=== PATIENT | female | born 1995 | race Caucasian/White ===

== ENCOUNTER → 2018-11-20 13:52 | Observation (INO) ==
--- NOTE | 2018-11-20 08:33 | OB/GYN History & Physical ---
Date of Encounter: 11/20/18 Time of Encounter: 08:31 Assessment and Plan (1) 33 weeks gestation of Current visit: Yes Status: Acute t at 33w 4d gestation set by 28 week u/s. RNST today. (2) Diffuse abdominal pain Current visit: Yes Status: Acute Pt presents with acute onset abdominal pain at 5 am. I'm uncertain as etiology of pain but she is quite uncomfortable. Will definitely need observation. She is having some uc's so will give one dose of Brethine while assessing reason for pain. She has no evidence of ROM, will check CBC. Will check fibrinogen and u/s to r/o abruption. Will, consider steroids pending results of CBC. History of Present Illness HPI: Ms. Martinez is a 23 year old female female with EDC 01/04/19 set by 29w5d u/s presents at 33w4d with c/o sudden onset of excruciating diffuse abdominal pain and mid back pain starting a 5 am this morning when she was going to bed. She denies true uc's, vb or any lof. She has had no similar c/o during this . No recent abdominal trauma or SI. She denies drug use. Aside from late and limited PNC she has had no other complications. She had normal 3 hr GTT. Past Med Surg Social Fam HX - Past Medical History Source: patient, old records reviewed Medical history: asthma Obstetrical History - Pregnancies : 1 Exam - Constitutional Constitutional: obese - HEENT HEENT: EOMI, PERRL - Neck Neck exam: full ROM - Lungs Respiratory exam: CTAB - Cardiovascular Cardiovascular exam: RRR - Abdomen Abdomen: Present: gravid, diffuse tenderness - Cervix Dilation: 1 Effacement: 60 Station: -3 - Comments Comments: SSE is neg for pool or nitrazine. Results All other labs normal. - VTE Reasons for not Prescribing Prophylaxis: Treatment not Indicated - Low risk for VTE
[2018-11-20 08:41] LABS: Basophils % 0.3 %; Eosinophils # 0.1 K/mcL (0.0-0.6); Eosinophils % 0.6 %; Hemoglobin 13.7 g/dL (11.5-15.4); Immature Granulocytes % 0.4 % (0-4); Lymphocytes # 1.7 K/mcL (0.6-4.6); Lymphocytes % 12.9 %; Mean Corpuscular HGB Conc 34.3 g/dL (31.6-35.5); Mean Corpuscular Hemoglobin 29.3 pg (28.0-33.3); Mean Corpuscular Volume 85.7 fL (83.0-100.0); Mean Platelet Volume 11.6 fL (9.4-12.4); Monocytes # 0.7 K/mcL (0.0-1.3); Monocytes % 4.9 %; Neutrophils # 10.9 K/mcL (1.6-8.9); Platelet Count 229 K/mcL (140-400); Red Blood Count 4.67 M/mcL (3.82-4.97); Red Cell Distribution Width 13.1 % (11.5-14.5); Segmented Neutrophils % 80.9 %
[2018-11-20 09:02] LABS: Alanine Aminotransferase 11 Units/L (7-52); Aspartate Amino Transferase 11 Units/L (13-39); BUN/Creatinine Ratio 11 (6-26); Blood Urea Nitrogen 5 mg/dL (6-20); Lactate Dehydrogenase 137 Units/L (140-271); Uric Acid 3.4 mg/dL (2.3-7.6); eGFR For Non-African Americans > 60 (> 60)
[2018-11-20 09:46] LABS: Bilirubin,Urine Negative (Negative); Blood,Urine Negative (Negative); Clarity,Urine Clear (Clear); Color,Urine Yellow (Yellow); Glucose,Urine (UA) Normal (Normal); Ketones,Urine Negative (Negative); Leukocyte Esterase,Urine Negative (Negative); Nitrite,Urine Negative (Negative); Protein,Urine Negative (Neg-Trace); Specific Gravity,Urine 1.022 (1.010-1.025); Urobilinogen,Urine Normal (Normal)
[2018-11-20 09:53] LABS: Amphetamine Screen,Urine Negative ng/mL (Cutoff=1000); Barbiturate Screen,Urine Negative ng/mL (Cutoff=200); Benzodiazepines Screen,Urine Negative ng/mL (Cutoff=200); Cannabinoid Screen,Urine Negative ng/mL (Cutoff = 50); Cocaine Screen,Urine Negative ng/mL (Cutoff= 300); Opiate Screen,Urine Negative ng/mL (Cutoff=300); Phencyclidine Screen,Urine Negative ng/mL (Cutoff=25)
[2018-11-20 09:57] LABS: Protein/Creatinine Ratio,Urine 0.11 mg/mg (0.00-0.20)
--- NOTE | 2018-11-20 13:26 | OB Labor Progress Note ---
Date of Encounter: 11/20/18 Time of Encounter: 13:24 Labor Progress Note - Subjective Subjective: Pt doing well, no longer with any pain, vb or lof. - Heart Tones Heart Tones: RNST - Nageezi Nageezi: No UC's - Interventions Interventions: Will d/c home. - Plan Plan: D/c home.
[~2018-11-20 13:52] MED LIST: Ringers Solution, Lactated 1,000 ML ONE; Ringers Solution, Lactated 500 ML IVC ONE; Terbutaline 1 MG/ML VIAL SQ ONE
== END | disposition home or self-care (01) ==
LOC: 1NENULAB
PROVIDERS: ADMIT Student in an Organized Health Care Education/Training Program; ATTEND Student in an Organized Health Care Education/Training Program

== ENCOUNTER → 2018-12-10 23:00 | Observation (INO) ==
[2018-12-10 21:47] LABS: Bilirubin,Urine Negative (Negative); Blood,Urine Negative (Negative); Clarity,Urine Clear (Clear); Color,Urine Yellow (Yellow); Glucose,Urine (UA) Normal (Normal); Ketones,Urine Negative (Negative); Leukocyte Esterase,Urine Small (Negative); Nitrite,Urine Negative (Negative); Protein,Urine Trace mg/dL (Neg-Trace); Specific Gravity,Urine 1.019 (1.010-1.025); Urobilinogen,Urine Normal (Normal)
[2018-12-10 21:50] LABS: Bacteria,Urine Moderate per hpf (None-Few); Hyaline Casts,Urine None Seen per lpf (None-Few); Squamous Epithelial Cell,Urine Many per lpf (None-Few)
[2018-12-10 22:06] LABS: Amphetamine Screen,Urine Negative ng/mL (Cutoff=1000); Barbiturate Screen,Urine Negative ng/mL (Cutoff=200); Benzodiazepines Screen,Urine Negative ng/mL (Cutoff=200); Cannabinoid Screen,Urine Negative ng/mL (Cutoff = 50); Cocaine Screen,Urine Negative ng/mL (Cutoff= 300); Opiate Screen,Urine Negative ng/mL (Cutoff=300); Phencyclidine Screen,Urine Negative ng/mL (Cutoff=25)
[2018-12-10 22:20] LABS: Basophils % 0.2 %; Eosinophils % 0.4 %; Hematocrit 36.5 % (35.3-44.9); Hemoglobin 12.2 g/dL (11.5-15.4); Immature Granulocytes % 0.4 % (0-4); Lymphocytes # 1.3 K/mcL (0.6-4.6); Lymphocytes % 12.1 %; Mean Corpuscular HGB Conc 33.4 g/dL (31.6-35.5); Mean Corpuscular Hemoglobin 28.8 pg (28.0-33.3); Mean Corpuscular Volume 86.3 fL (83.0-100.0); Monocytes # 0.5 K/mcL (0.0-1.3); Monocytes % 5.1 %; Neutrophils # 8.7 K/mcL (1.6-8.9); Platelet Count 216 K/mcL (140-400); Red Blood Count 4.23 M/mcL (3.82-4.97); Red Cell Distribution Width 13.4 % (11.5-14.5); Segmented Neutrophils % 81.8 %
--- NOTE | 2018-12-10 22:52 | Discharge Summary ---
Date of Encounter: 12/10/18 Time of Encounter: 23:02 - Discharge Diagnosis (1) 36 weeks gestation of Priority: Primary Status: Acute Comments: Admitted to observation for labor evaluation (2) NST (non-stress test) reactive Priority: Secondary Status: Acute Comments: FHR 135 bpm, moderate variability, +15x15 accels, no decels. (3) False labor before 37 completed weeks of gestation Priority: Secondary Status: Acute Comments: SVE 1/thick/high without change in >1 hr Qualifiers: Trimester: third trimester Qualified Code(s): O47.03 - False labor before 37 completed weeks of gestation, third trimester - Discharge Medications Home Medications: Prenata Chewable Tablet 1 tab PO BID 11/20/18 [History] Allergies/Adverse Reactions: Allergy/AdvReac Type Severity Reaction Status Date / Time No Known Allergies Allergy Verified 12/10/18 20:20 Data Procedures and tests throughout hospitalization: Laboratory Tests 12/10/18 12/10/18 12/10/18 21:34 21:34 22:05 WBC 10.6 RBC 4.23 Hgb 12.2 Hct 36.5 MCV 86.3 MCH 28.8 MCHC 33.4 RDW 13.4 Plt Count 216 MPV 12.0 Immature Gran % 0.4 Seg Neutrophils % 81.8 Lymphocytes % 12.1 Monocytes % 5.1 Eosinophils % 0.4 Basophils % 0.2 Neutrophils # 8.7 Lymphocytes # 1.3 Monocytes # 0.5 Eosinophils # 0.0 Basophils # 0.0 Urine Color Yellow Urine Clarity Clear Urine pH 7.0 Ur Specific [place] 1.019 Urine Protein Trace Urine Glucose (UA) Normal Urine Ketones Negative Urine Blood Negative Urine Nitrite Negative Urine Bilirubin Negative Urine Urobilinogen Normal Ur Leukocyte Esterase Small H Urine Microscopic RBC 5-15 H Urine Microscopic WBC 5-15 H Ur Squamous Epith Cells Many H Urine Bacteria Moderate H Hyaline Casts None Seen Ur Culture Indicated? NO. A Urine Opiates Screen Negative Ur Barbiturates Screen Negative Ur Phencyclidine Scrn Negative Ur Amphetamines Screen Negative U Benzodiazepines Scrn Negative Urine Cocaine Screen Negative U Marijuana (THC) Screen Negative Ur Drug Screen Interp See Below Labs on day of discharge: Labs from last 24 hours 12/10/18 12/10/18 12/10/18 22:05 21:34 21:34 WBC 10.6 RBC 4.23 Hgb 12.2 Hct 36.5 MCV 86.3 MCH 28.8 MCHC 33.4 RDW 13.4 Plt Count 216 MPV 12.0 Immature Gran % 0.4 Seg Neutrophils % 81.8 Lymphocytes % 12.1 Monocytes % 5.1 Eosinophils % 0.4 Basophils % 0.2 Neutrophils # 8.7 Lymphocytes # 1.3 Monocytes # 0.5 Eosinophils # 0.0 Basophils # 0.0 Urine Color Yellow Urine Clarity Clear Urine pH 7.0 Ur Specific [place] 1.019 Urine Protein Trace Urine Glucose (UA) Normal Urine Ketones Negative Urine Blood Negative Urine Nitrite Negative Urine Bilirubin Negative Urine Urobilinogen Normal Ur Leukocyte Esterase Small H Urine Microscopic RBC 5-15 H Urine Microscopic WBC 5-15 H Ur Squamous Epith Cells Many H Urine Bacteria Moderate H Hyaline Casts None Seen Ur Culture Indicated? NO. A Urine Opiates Screen Negative Ur Barbiturates Screen Negative Ur Phencyclidine Scrn Negative Ur Amphetamines Screen Negative U Benzodiazepines Scrn Negative Urine Cocaine Screen Negative U Marijuana (THC) Screen Negative Ur Drug Screen Interp See Below Date of admission: 12/10/18 20:15 Discharging clinician: Comfort Gordon Anticipated date of discharge: 12/10/18 - Patient Status Disposition: Home, Self-Care Condition: Good Functional capacity at discharge: independent ambulation Overall status at discharge: patient is progressing back to baseline - Discharge Instructions Additional Instructions: LABOR AND DELIVERY DISCHARGE INSTRUCTIONS Signs and Symptoms to be Reported to your Doctor Immediately: * Sudden gush, continuous or intermittent lead of fluid from vagina (note the time of gush and color of fluid) * Onset of bright red vaginal bleeding with or without pain (if you had a vaginal exam during this visit you may notice some dark red spotting. This is normal.) * Contractions that are 5 minutes apart (from the beginning of one contraction to the beginning of the next) and last 45-60 seonds; contractions that you can no longer walk, talk or laugh through. * A change in the baby's activity. This could be an increase or decrease in activity. * Severe headache which does not go away with tylenol. * Sudden swelling in the face, hands, arms and/or legs. * Upper abdominal pain - sometimes associated with heartburn or nausea and is not relieved by Maalox, Mylanta or Tums. * Kick Counts __ One hour after a meal, lay down on one side in a quiet place. Count the number of time the baby moves during an hour. If less than 6 movements, notify your physician Diet: *Force fluids, 8 to 10 tall glasses of fluid per day - may include popsicles and jello *Limit caffeine - this includes chocolate, coffee, tea, any soft drink containing such as all jl, Fabricio Yellow and Mountain Dew - Diet and Activity Activity: resume usual activities as tolerated Diet: regular diet Hospital Course P[employer]AW[employer]IVER Hospital course: Patient came to L&D with complaint of contraction pain since 1800 this evening that have become more painful. She reports positive movement, denies leakage and vaginal bleeding. While she was being monitored she stated the contractions have subsided and she is feeling better. Cervix is without change and she is scheduled for her routine visit in 2 days. Time Attestation: Total time spent providing and/or coordinating discharge services: Time Spent: Less than 30 minutes Exam - Constitutional General appearance IM: A&O X 3, no acute distress, answers questions appropriately - Respiratory Respiratory exam: Present: CTAB - Cardiovascular Cardiovascular exam IM: Present: RRR, +S1, +S2 - GI/Abdominal GI/Abdominal exam IM: normal bowel sounds, soft - Extremities Exam Extremities exam IM: Present: full ROM, normal capillary refill, normal inspection, pedal edema - Neurological Exam Neurological exam: alert, normal gait, oriented X3 - VTE Reasons for not Prescribing Prophylaxis: Treatment not Indicated - Low risk for VTE
== END | disposition home or self-care (01) ==
LOC: 1NENULAB
PROVIDERS: ADMIT Registered Nurse; ATTEND Registered Nurse

== ENCOUNTER 2018-12-20 07:51 | Inpatient (IN) ==
[2018-12-20] MEDS ORDERED: Naloxone 0.4 MG/ML INJ IVP PRN ×2 (09:51→10:22)
[2018-12-20] MEDS ORDERED: Penicillin G Potassium 5,000,000 UNIT in 0.9 % Sodium Chloride Mini Bag 100 ML IVPB ONE (09:51)
[2018-12-20] MEDS ORDERED: Famotidine 20 MG/2 ML VIAL IVP PRN (09:51)
[2018-12-20] MEDS ORDERED: Metoclopramide 10 MG/2 ML VIAL IVP PRN ×2 (09:51→17:39)
[2018-12-20] MEDS ORDERED: Ondansetron 4 MG/2 ML VIAL IVP PRN ×3 (09:51→17:39)
[2018-12-20] MEDS ORDERED: *HR* Nalbuphine 10 MG/ML AMPUL IVP PRN (09:51)
[2018-12-20] MEDS ORDERED: Ringers Solution, Lactated 1,000 ML ONE (09:56)
[2018-12-20] MEDS ORDERED: Oxytocin 20 units/ LR 1000 mL 20 UNIT/1,000 ML BAG IVC SCH ×2 (10:00→17:39)
[2018-12-20] MEDS ORDERED: Ringers Solution, Lactated 1,000 ML IVC SCH ×2 (10:00→17:39)
[2018-12-20] MEDS ORDERED: Ringers Solution, Lactated 2,000 ML ONE (10:15)
[2018-12-20 10:21] LABS: Amphetamine Screen,Urine Negative ng/mL (Cutoff=1000); Barbiturate Screen,Urine Negative ng/mL (Cutoff=200); Benzodiazepines Screen,Urine Negative ng/mL (Cutoff=200); Cannabinoid Screen,Urine Negative ng/mL (Cutoff = 50); Cocaine Screen,Urine Negative ng/mL (Cutoff= 300); Opiate Screen,Urine Negative ng/mL (Cutoff=300); Phencyclidine Screen,Urine Negative ng/mL (Cutoff=25)
[2018-12-20] MEDS ORDERED: *HR* Ropivacaine/PF 0.2% 20 ML VIAL EP ONE (10:22)
[2018-12-20] MEDS ORDERED: *HR* FentaNYL (PF) 100 MCG/2 ML VIAL EP ONE (10:22)
[2018-12-20] MEDS ORDERED: EPHEDrine 50 MG/ML VIAL IVP PRN (10:22)
--- NOTE | 2018-12-20 10:26 | OB/GYN History & Physical ---
Date of Encounter: 12/20/18 Time of Encounter: 10:20 Assessment and Plan (1) 37 weeks gestation of Current visit: Yes Status: Acute (2) Intrauterine Current visit: Yes Status: Acute Admit to L&D for augmentation of labor Early labor Start Pitocin and increased per protocol Pain management plan is epidural - may have upon request Labs-CBC and clot to hold Continuous electronic monitoring Anticipate vaginal delivery Dr. Salas is the OB on-call and is available as needed. He is aware of the plan of care and agrees (3) NST (non-stress test) reactive Current visit: No Status: Acute (4) Morbid obesity with BMI of 50.0-59.9, adult Current visit: Yes Status: Acute (5) Gestational hypertension affecting first Current visit: Yes Status: Acute (6) SROM (spontaneous rupture of membranes) Current visit: Yes Status: Acute (7) GBS (group B Streptococcus carrier), +RV culture, currently Current visit: Yes Status: Acute Penicillin per protocol (8) Type A blood, Rh positive Current visit: Yes Status: Acute History of Present Illness Chief complaint: contractions HPI: Ms. Martinez is a 23 year old female at 37 weeks 6 days gestation with an estimated date of of 01/04/19 dated by initial visit with ultrasound. She presents today with report of contractions starting this morning. On initial exam her cervix was unchanged from prior exam. However, through additional monitoring she was found to have several severe range blood pressures and spontaneously ruptured at 0915 with a small amount of clear fluid. She endorses good movement and denies vaginal bleeding. She denies headache, blurry vision, right upper quadrant pain. She was followed by Dr. Casanova throughout her . Her has been complicated by a being late to care, morbid obesity, and gestational hypertension. Labs: A+ GBS+ HIV- Hep B- T. Palladium- GC/CL- Rubella immune Varicella immune Past Med Surg Social Fam HX - Past Medical History Medical history: asthma Psychiatric history: depression - Past Surgical History Surgical History: no surgical history - Social History Smoking Status: Never smoker Smokeless Tobacco Status: No Alcohol use: none Drug use: none - Family History Mother History Unknown: Yes Adopted: Yes (patient does not know any true family members) Family Member Ethnicity: Non- Living Status: Still Living Obstetrical History - Pregnancies : 1 Para: 0 Term: 0 : 0 Ab's: 0 Livin Medications and Allergies Prenata Chewable Tablet 1 tab PO BID 11/20/18 [History] Allergy/AdvReac Type Severity Reaction Status Date / Time No Known Allergies Allergy Verified 12/10/18 20:20 Review of System OB All systems PM: reviewed and no additional remarkable complaints except as stated Exam - Constitutional Constitutional: well developed, well nourished, moderate distress, morbidly obese - HEENT HEENT: PERRL, Normocephaly, Mucus Membranes Moist - Neck Neck exam: full ROM - Lungs Respiratory exam: CTAB - Cardiovascular Cardiovascular exam: RRR, +S1, +S2 - Breasts Breast: bilateral: normal - Abdomen Abdomen: Present: bowel sounds normal, gravid, non tender - Extremities Extremities exam: normal capillary refill, normal inspection, radial pulses palpable and symmetrical - Vulva Vulva: bilateral: normal - Vagina Vagina: Present: normal moisture - Cervix Dilation: 3 Effacement: 80 Station: -2 - Uterus Uterus exam: Present: normal size, normal contour - Adnexa Adnexa: bilateral: normal - Anus/Rectum Anus/Rectum: Present: normal perianal skin Results All other labs normal. - VTE Reasons for not Prescribing Prophylaxis: Treatment not Indicated - Low risk for VTE
--- NOTE | 2018-12-20 10:27 | Anesthesia Evaluation PreOp ---
Date of Encounter: 12/20/18 Time of Encounter: 10:20 - Past History Planned Operation: HOWARD Cardiac History: HTN (with ) Pulmonary History: Denies Any Significant HX AFTERNOON BABYSITTER History: Denies Any Significant HX Other Medical History: Denies Any Significant HX, Other (Super morbid obesity BMI 58) Anesthesia History: No Prior Anesthetic Complications, Past Anesthesia (teeth extraction as a child) : Yes Alcohol Use: none Drug use: none Medications and Allergies Prenata Chewable Tablet 1 tab PO BID 11/20/18 [History] Allergy/AdvReac Type Severity Reaction Status Date / Time No Known Allergies Allergy Verified 12/10/18 20:20 - Meds/Allergy Pre-op Review Medications Reviewed: Yes Allergies Reviewed: Yes Beta Blockers on Current Med List: No Anesthesia Results - Labs 12/20/18 10:06 12/20/18 10:06 Anesthesia Exam T 98.4 BP 148/78 P 90 R 20 Height: 5'3" Weight: 340lb NPO (# of Hours): 4 hrs solids Pain Scale: 7 Pain Scale Used: Numeric (1 - 10) - HEENT Pupil (Motor): Pupils equal Mallampati: II Teeth: Normal Oral Opening: Greater than 3 - AFTERNOON BABYSITTER LOC: Oriented AFTERNOON BABYSITTER Motor: Normal RUE, Normal LUE, Normal RLE, Normal LLE, Normal Face AFTERNOON BABYSITTER Sensory: Normal: RUE, LUE, RLE, LLE, Face - Cardiac Rhythm: Regular Murmur: None JVD: No Carotid Bruit: No - Pulmonary Breath Sounds: bilateral Clear Respiratory Effort: Symmetrical Anesthesia Assess/Plan ASA Score: 3 Level of consciousness: Cooperative Anesthetic Plan: Epidural Autologous Blood: No Monitoring Plan: Standard Monitors Recovery Plan: Other
[2018-12-20] MEDS ORDERED: Epidural Premix (fent/bupiv) 110 ML EP SCH (10:30)
[2018-12-20 10:46] LABS: Basophils # 0.1 K/mcL (0.0-0.2); Basophils % 0.3 %; Eosinophils # 0.1 K/mcL (0.0-0.6); Eosinophils % 0.4 %; Hematocrit 39.2 % (35.3-44.9); Hemoglobin 13.4 g/dL (11.5-15.4); Immature Granulocytes % 0.4 % (0-4); Lymphocytes % 10.5 %; Mean Corpuscular HGB Conc 34.2 g/dL (31.6-35.5); Mean Corpuscular Hemoglobin 29.6 pg (28.0-33.3); Mean Corpuscular Volume 86.7 fL (83.0-100.0); Mean Platelet Volume 12.2 fL (9.4-12.4); Monocytes # 1.1 K/mcL (0.0-1.3); Monocytes % 5.8 %; Neutrophils # 15.7 K/mcL (1.6-8.9); Platelet Count 201 K/mcL (140-400); Red Blood Count 4.52 M/mcL (3.82-4.97); Red Cell Distribution Width 13.4 % (11.5-14.5); Segmented Neutrophils % 82.6 %
--- NOTE | 2018-12-20 10:48 | OB Labor Progress Note ---
Date of Encounter: 12/20/18 Time of Encounter: 10:46 Labor Progress Note - Subjective Subjective: Patient very uncomfortable with contractions. Rates /. - Cervix Cervix: 4/80/-2 - Heart Tones Heart Tones: UTD due to lack of monitoring. - Hartly Hartly: UTD due to maternal habitus - Interventions Interventions: SVE IUPC placed FSE placed - Plan Physician notified: No Plan: Continue expectant management Epidural TOM Anticipate vaginal delivery
[2018-12-20] MEDS ORDERED: *HR* Ropivacaine/PF 0.2% 20 ML VIAL ONE (10:50)
[2018-12-20] MEDS ORDERED: *HR* FentaNYL (PF) 100 MCG/2 ML VIAL ONE ×3 (10:50→13:00)
[2018-12-20] MEDS ORDERED: Lidocaine -MPF 1% 5 ML AMPUL ONE (10:51)
[2018-12-20 11:09] LABS: Alanine Aminotransferase 11 Units/L (7-52); Aspartate Amino Transferase 12 Units/L (13-39); BUN/Creatinine Ratio 16 (6-26); Blood Urea Nitrogen 7 mg/dL (6-20); Lactate Dehydrogenase 161 Units/L (140-271); Protein/Creatinine Ratio,Urine 0.09 mg/mg (0.00-0.20); Uric Acid 3.4 mg/dL (2.3-7.6); eGFR For Non-African Americans > 60 (> 60)
[2018-12-20] MEDS ORDERED: *HR* Labetalol 20 MG/4 ML SYRINGE IVP ONE (11:26)
--- NOTE | 2018-12-20 11:28 | Anesthesia Procedures ---
Addendum entered and electronically signed by Alex Rodas CRNA 12/20/18 16:51: 12/20/2018 1156 Pt to Operating Room for Urgent . Delivery Time 12:25 Original Note: Date of Encounter: 12/20/18 Time of Encounter: 10:55 Procedures: Anesthesia - Epidural/Spinal Patient ID/Chart reviewed: Yes Patient examined: Yes OB Eval: Gestational age: 35 OB Eval: : 1 OB Eval: Hx Para: 0 OB Eval: Dilated at (cm): 3 OB Eval: Contractions: Non-stressed pattern Consent Obtained: Yes Supplemental Oxygen: None/Room Air Site Prep: Aseptic Technique, Sterile prep and drape, Povidone-Iodine 1% Patient position: upright Local Anesthetic: Lidocaine 1% Amount of Local Anesthetic used: 3 Touhy Needle Gauge: 18 Touhy Needle Depth (cm): 8 Catheter Depth at Skin (cm): 15 Test Dose (1.5% Lido + Epi): Volume given (mls): 3 Test Dose Result: Negative Loading Dose: Fentanyl (mcg): 100 Loading Dose: Other: Ropivicaine 0.2% 8ml Loading Dose Administered: Thru Catheter Infusion Med: 0.125% Bupivacaine w/ 2 mcg/ml Fentanyl Infusion Rate (mls/hr): [address]: Tegaderm, Tape Interspace Used: L3-L4 Loss of Resistance (JUSTYN): Yes CSF: No Paresthesia: No Procedure: HOWARD placed 1st pass in upright position without any immediate noted complications. Negative CSF, Positive JUSTYN, VSS and FHT stable. Vitals + FHT's: 1055 BP 172/111 P 120 R 20 1118 BP 171/75 P 101 R 16 FHT 140s
--- NOTE | 2018-12-20 11:53 | OB Labor Progress Note ---
Date of Encounter: 12/20/18 Time of Encounter: 11:06 Labor Progress Note - Subjective Subjective: Patient currently getting epidural. Remains uncomfortable. - Cervix Cervix: 3-4/80/-2 - Heart Tones Heart Tones: Baseline 135 Moderate variability No accelerations Recurrent late decelerations FHR Category II - Mangum Mangum: IUPC shows tachysystole - Interventions Interventions: SVE Care turned over to Dr. Salas - Plan Physician notified: Yes Physician notified details: Dr. Salas notified of category II tracing and en route to bedside. Plan: Continue management Care turned over to Dr. Salas
[2018-12-20] MEDS ORDERED: Chloroprocaine/PF 20 ML VIAL INFILT ONE (12:13)
[2018-12-20] MEDS ORDERED: Propofol 500 MG/50 ML INFUS..BTL ONE (12:17)
[2018-12-20] MEDS ORDERED: *HR* Succinylcholine 200 MG/10 ML VIAL IVP ONE (12:18)
[2018-12-20] MEDS ORDERED: Lidocaine -MPF 2% 5 ML VIAL ONE ×2 (12:25→14:02)
[2018-12-20] MEDS ORDERED: *HR* Oxytocin 10 UNIT/ML VIAL IM ONE (12:26)
[2018-12-20] MEDS ORDERED: *HR* Morphine Sulfate/PF 10 MG/10 ML AMPUL ONE (12:53)
[2018-12-20] MEDS ORDERED: *HR* Promethazine 25 MG/ML VIAL IVP PRN (13:07)
[2018-12-20] MEDS ORDERED: *HR* Meperidine 25 MG/ML SYRINGE IVP PRN (13:07)
[2018-12-20] MEDS ORDERED: Ketorolac 30 MG/ML VIAL IVP ONE (13:07)
[2018-12-20] MEDS ORDERED: Acetaminophen IV 1,000 MG/100 ML INFUS..BTL IVPB ONE (13:07)
[2018-12-20] MEDS ORDERED: Ondansetron 4 MG/2 ML VIAL IVP ONE (13:07)
[2018-12-20] MEDS ORDERED: MORPHINE SUL Oral CONC 10 MG/0.5 ML ORAL.SYG SL PRN (13:07)
[2018-12-20] MEDS ORDERED: Penicillin G Potassium 2,500,000 UNIT in 0.9 % Sodium Chloride 100 ML IVPB SCH (14:00)
--- NOTE | 2018-12-20 14:10 | OB/GYN Procedure Note ---
Section - Date of procedure: 12/20/18 Preop diagnosis: category 2 FHT tracing Post-op diagnosis: same Procedure: primary low transverse Surgeon: Osmar Pa Blood Loss: 500 Was there an respiratory care assistant present: Yes Lawnmower Repair Mechanic: Kiki Freire [employer]el Supervisor: Alex Rodas Anesthesia Type: General section complications: none Disposition: L&D Recovery Room Specimens: Placenta - Infant (s) Infant A Delivery Date: 12/20/18 Delivery Time: 12:25 Presentation: vertex Gender: Female Gram Weight: 2.42 kg at 1 minute: 1 at 5 minutes: 6 at 10 minutes: 8 Shoulder Dystocia: not encountered - Narrative Narrative: After informed consent was obtained, the patient was taken to the operating room where she was placed in the dorsal supine position with a leftward tilt, prepped and draped in the usual sterile fashion. We tested the epidural anesthesia but it was not adequate. After multiple failed testings, we decided to place her under general anesthesia. This was done without difficulty. A Pfannenstiel skin incision was made and then carried down to the underlying layer of fascia. The fascia was excised in the midline and extended bluntly. The underlying rectus muscles were dissected off bluntly revealing the peritoneum. The peritoneum was entered bluntly revealing the uterus. The bladder blade was inserted and a uterine incision was made with a knife and then extended laterally. The infant was delivered. The cord was clamped and the baby was then handed off to the awaiting Nurses. The placenta was then manually extracted from the uterus. The uterus was exteriorized and cleared of all clots and debris. Then, the uterine incision was closed with #0 Vicryl, first layer in locking stitch fashion and the second layer an imbricating layer. The uterus was then replaced back into the abdomen. The gutters were cleared of all clots and debris. The uterine incision was then once again inspected and noted to be hemostatic. The fascia was then closed with #0 Vicryl in a running fashion. The subcutaneous layer and Scarpas fascia were repaired with #3-0 Vicryl. Then, the skin edges were reapproximated using 4-0 vicryl. The dressing was placed. The patient tolerated the procedure well. Sponge, lap, and needle, counts were correct x2. The patient was taken to recovery in stable condition.
[2018-12-20] MEDS: *HR* HYDROmorphone (PF) 1 MG/ML SYRINGE IVP PRN ×2 (14:23→14:41)
--- NOTE | 2018-12-20 16:48 | Anesthesia Evaluation Post Op ---
Date of Encounter: 12/20/18 Time of Encounter: 16:00 - Vital Signs Vital Signs: BP 142/97 P 109 R 16 T 98.7 - Lungs Lungs: Clear Ascult./Percussion - Airway Airway: Non-obstructed - Cardiovascular Regular Rate - Mental Status Mental Status: Alert & Oriented, Answers Appropriately - Pain Pain Scale: 2 Pain Scale used: Numeric (1 - 10) - Nausea Vomiting Nausea Vomiting: Not Present - Hydration Hydration: NPO, Shane catheter - Discharge PostOp Status: Transfer Patient to floor
[2018-12-20] MEDS ORDERED: Simethicone 80 MG TAB.CHEW PO PRN (17:39)
[2018-12-20] MEDS ORDERED: Sennosides 8.6 MG TABLET PO PRN (17:39)
[2018-12-20] MEDS: *HR* OxyCODONE/APAP 5/325 TABLET PO PRN (21:03)
[2018-12-21] MEDS ORDERED: Acetaminophen 325 MG TABLET PO PRN (00:29)
[2018-12-21] MEDS ORDERED: Piperacillin/Tazobactam 3.375 GM in 0.9 % Sodium Chloride Mini Bag 100 ML IVPB SCH ×2 (01:00→03:15)
[2018-12-21] MEDS: *HR* OxyCODONE/APAP 5/325 TABLET PO PRN ×4 (04:20→19:06)
[2018-12-21 06:45] LABS: Basophils % 0.2 %; Hematocrit 29.5 % (35.3-44.9); Immature Granulocytes % 0.4 % (0-4); Lymphocytes # 1.5 K/mcL (0.6-4.6); Lymphocytes % 9.6 %; Mean Corpuscular HGB Conc 34.2 g/dL (31.6-35.5); Mean Corpuscular Hemoglobin 29.9 pg (28.0-33.3); Mean Corpuscular Volume 87.3 fL (83.0-100.0); Mean Platelet Volume 11.9 fL (9.4-12.4); Monocytes # 0.9 K/mcL (0.0-1.3); Monocytes % 5.7 %; Neutrophils # 13.1 K/mcL (1.6-8.9); Platelet Count 159 K/mcL (140-400); Red Blood Count 3.38 M/mcL (3.82-4.97); Red Cell Distribution Width 13.9 % (11.5-14.5); Segmented Neutrophils % 84.1 %
[2018-12-21 06:46] LABS: Hemoglobin 10.1 g/dL (11.5-15.4)
[2018-12-21] MEDS: Piperacillin/Tazobactam 3.375 GM in 0.9 % Sodium Chloride Mini Bag 100 ML IVPB SCH ×2 (08:38→16:40)
[2018-12-21] MEDS: Prenatal Vit/FA 1 EACH TABLET PO SCH (08:41)
--- NOTE | 2018-12-21 09:40 | OB/GYN Progress Note ---
Date of Encounter: 12/21/18 Time of Encounter: 09:35 - Assessment and Plan (1) Status post primary low transverse section Current Visit: Yes Status: Acute Patient status post day 1 low-transverse primary . She is doing well. Says she does have mild abdominal pain but says it is getting better with pain medications. She has not been able to void but urinary catheter was removed approximately 2 hours ago. We will continue to monitor. Patient has not had a bowel movement this time but does feel her bowels moving she has not eaten since the procedure yesterday currently breakfast was given brought into the room while I was seeing her and says she does feel like eating. She has no nausea. The dressing is currently in place there is no oversaturation no blood being seen. Patient's hemoglobin is stable. Patient meeting all day 1 milestones. Encourage ambulation rarely. Recommend iron supplementation for blood loss. Continue pain control and increased medication as needed for breakthrough pain. Plan for discharge tomorrow. (2) Breast feeding status of mother Current Visit: Yes Status: Acute [place] is breast-feeding well latching well mom has no concerns for breast- feeding. No further needs at this time. Subjective - Subjective Principal diagnosis: s/p Section Interval history: 23-year-old status post day 1 low-transverse primary section. Patient is doing well at this time so she does have mild lower abdominal pain with the incision site is but does not noticed any increased bleeding. No voiding at this time since urinary catheter that was pulled approximately 2 hours prior. Has not had a bowel movement since then. Says the pain medications have not been working. While he was in the room breakfast was currently being brought to her she had not eaten anything prior to that. She does feel like eating at this time. Baby is breast-feeding well latching on well. Otherwise patient has no complaints she has no questions at this time. Patient reports: appetite normal, voiding normally, pain well controlled, ambulating normally [place]: doing well Objective - Vital Signs Latest vital signs: Vital Signs Temp Pulse Pulse Resp BP Pulse Ox 12/21/18 07:55 99.0 F 116 18 113/61 97 12/21/18 06:38 98.9 F 115 15 108/66 96 12/21/18 04:30 99.5 F 120 120 15 117/68 100 12/21/18 00:32 110 12/21/18 00:15 100.5 F H 110 16 145/60 96 12/20/18 22:10 99.0 F 115 16 136/78 97 12/20/18 19:45 98.9 F 118 118 16 132/74 97 12/20/18 18:40 99.6 F 118 20 123/81 12/20/18 17:40 98.4 F 109 109 16 121/74 97 12/20/18 17:05 98.8 F 109 16 135/86 12/20/18 16:30 98.6 F 113 16 132/87 97 Intake and Output 12/20/18 12/21/18 12/21/18 23:59 07:59 15:59 Intake Total 1125 / 1125 Output Total 600 / 600 1200 / 1200 Balance -600 / -600 -75 / -75 Intake: Oral 500 / 500 Other 625 / 625 Output: Catheter 600 / 600 1200 / 1200 Other: Weight 152.135 kg Patient Weight 12/21/18 23:59 Weight 152.135 kg - Exam Lungs: right: normal Chest: Normal S1, Normal S2 Extremities: Present: normal Abdomen: Present: normal appearance, soft, gravid. Absent: distention, tenderness Incision: Present: normal, dry, intact, dressed (Non-saturated dressing) Uterus: Present: normal, firm - Labs Labs: Laboratory Results - last 24 hr 12/20/18 12/20/18 12/20/18 08:44 10:06 10:06 WBC 19.0 H RBC 4.52 Hgb 13.4 Hct 39.2 MCV 86.7 MCH 29.6 MCHC 34.2 RDW 13.4 Plt Count 201 MPV 12.2 Immature Gran % 0.4 Seg Neutrophils % 82.6 Lymphocytes % 10.5 Monocytes % 5.8 Eosinophils % 0.4 Basophils % 0.3 Neutrophils # 15.7 H Lymphocytes # 2.0 Monocytes # 1.1 Eosinophils # 0.1 Basophils # 0.1 BUN Creatinine Est GFR ( Amer) Est GFR (Non-Af Amer) BUN/Creatinine Ratio Uric Acid AST ALT Lactate Dehydrogenase Urine Creatinine 178 Protein/Creatinin Ratio 0.09 Urine Total Protein 16 H Urine Opiates Screen Negative Ur Barbiturates Screen Negative Ur Phencyclidine Scrn Negative Ur Amphetamines Screen Negative U Benzodiazepines Scrn Negative Urine Cocaine Screen Negative U Marijuana (THC) Screen Negative 12/20/18 12/21/18 10:06 06:13 WBC 15.6 H RBC 3.38 L Hgb 10.1 L D Hct 29.5 L MCV 87.3 MCH 29.9 MCHC 34.2 RDW 13.9 Plt Count 159 MPV 11.9 Immature Gran % 0.4 Seg Neutrophils % 84.1 Lymphocytes % 9.6 Monocytes % 5.7 Eosinophils % 0.0 Basophils % 0.2 Neutrophils # 13.1 H Lymphocytes # 1.5 Monocytes # 0.9 Eosinophils # 0.0 Basophils # 0.0 BUN 7 Creatinine 0.44 L Est GFR ( Amer) > 60 Est GFR (Non-Af Amer) > 60 BUN/Creatinine Ratio 16 Uric Acid 3.4 AST 12 L ALT 11 Lactate Dehydrogenase 161 Urine Creatinine Protein/Creatinin Ratio Urine Total Protein Urine Opiates Screen Ur Barbiturates Screen Ur Phencyclidine Scrn Ur Amphetamines Screen U Benzodiazepines Scrn Urine Cocaine Screen U Marijuana (THC) Screen
[2018-12-21] MEDS: Ibuprofen 600 MG TABLET PO PRN ×4 (09:48→21:56)
[2018-12-22] MEDS: Piperacillin/Tazobactam 3.375 GM in 0.9 % Sodium Chloride Mini Bag 100 ML IVPB SCH ×2 (00:43→07:48)
[2018-12-22] MEDS: *HR* OxyCODONE/APAP 5/325 TABLET PO PRN ×2 (06:42→18:27)
[2018-12-22] MEDS: Prenatal Vit/FA 1 EACH TABLET PO SCH (07:46)
[2018-12-22] MEDS: Ibuprofen 600 MG TABLET PO PRN ×3 (07:46→21:48)
--- NOTE | 2018-12-22 09:35 | Discharge Summary ---
Date of Encounter: 12/22/18 Time of Encounter: 10:57 - Discharge Diagnosis (1) Breast feeding status of mother Priority: Secondary Status: Acute (2) Morbid obesity with BMI of 50.0-59.9, adult Priority: Secondary Status: Acute Comments: KADY dressing dry and intact. Pt verbalizes understanding of incisional care. (3) Status post primary low transverse section Priority: Primary Status: Acute Comments: Pt meeting all post-op milestones. She reports pain well controlled. She is passing flatus and tolerating a regular diet. She is also able to ambulate without difficulty and void spontaneously. She denies any other complaints. Good mood. She plans to discuss contraception with her provider at her visit. - Discharge Medications Prescriptions: OxyCODONE/APAP 5/325 [Percocet 5/325 MG] 1 each PO Q4HR PRN 7 Days #28 tablet PRN Reason: Moderate pain 4-6 Ibuprofen [Motrin] 600 mg PO Q6HR PRN #60 tablet PRN Reason: Cramping Docusate [Colace] 100 mg PO BID #60 capsule Home Medications: [place] Chewable Tablet 1 tab PO BID 11/20/18 [History] Azithromycin [Zithromax] 500 mg PO DAILY #5 tablet 12/22/18 [Rx] Cephalexin [Keflex] 500 mg PO BID #10 capsule 12/22/18 [Rx] Docusate [Colace] 100 mg PO BID #60 capsule 12/22/18 [Rx] Ibuprofen [Motrin] 600 mg PO Q6HR PRN #60 tablet 12/22/18 [Rx] OxyCODONE/APAP 5/325 [Percocet 5/325 MG] 1 each PO Q4HR PRN 7 Days #28 tablet 12/22/18 [Rx] Simethicone [Gas-X] 80 mg PO TID PRN tab.chew 12/22/18 [Rx] Allergies/Adverse Reactions: Allergy/AdvReac Type Severity Reaction Status Date / Time No Known Allergies Allergy Verified 12/10/18 20:20 Data Procedures and tests throughout hospitalization: Laboratory Tests 12/20/18 12/20/18 12/20/18 08:44 10:06 10:06 WBC 19.0 H RBC 4.52 Hgb 13.4 Hct 39.2 MCV 86.7 MCH 29.6 MCHC 34.2 RDW 13.4 Plt Count 201 MPV 12.2 Immature Gran % 0.4 Seg Neutrophils % 82.6 Lymphocytes % 10.5 Monocytes % 5.8 Eosinophils % 0.4 Basophils % 0.3 Neutrophils # 15.7 H Lymphocytes # 2.0 Monocytes # 1.1 Eosinophils # 0.1 Basophils # 0.1 BUN Creatinine Est GFR ( Amer) Est GFR (Non-Af Amer) BUN/Creatinine Ratio Uric Acid AST ALT Lactate Dehydrogenase Urine Creatinine 178 Protein/Creatinin Ratio 0.09 Urine Total Protein 16 H Urine Opiates Screen Negative Ur Barbiturates Screen Negative Ur Phencyclidine Scrn Negative Ur Amphetamines Screen Negative U Benzodiazepines Scrn Negative Urine Cocaine Screen Negative U Marijuana (THC) Screen Negative Ur Drug Screen Interp See Below 12/20/18 12/21/18 10:06 06:13 WBC 15.6 H RBC 3.38 L Hgb 10.1 L D Hct 29.5 L MCV 87.3 MCH 29.9 MCHC 34.2 RDW 13.9 Plt Count 159 MPV 11.9 Immature Gran % 0.4 Seg Neutrophils % 84.1 Lymphocytes % 9.6 Monocytes % 5.7 Eosinophils % 0.0 Basophils % 0.2 Neutrophils # 13.1 H Lymphocytes # 1.5 Monocytes # 0.9 Eosinophils # 0.0 Basophils # 0.0 BUN 7 Creatinine 0.44 L Est GFR ( Amer) > 60 Est GFR (Non-Af Amer) > 60 BUN/Creatinine Ratio 16 Uric Acid 3.4 AST 12 L ALT 11 Lactate Dehydrogenase 161 Urine Creatinine Protein/Creatinin Ratio Urine Total Protein Urine Opiates Screen Ur Barbiturates Screen Ur Phencyclidine Scrn Ur Amphetamines Screen U Benzodiazepines Scrn Urine Cocaine Screen U Marijuana (THC) Screen Ur Drug Screen Interp Date of admission: 12/20/18 07:51 Primary care physician: PCP NONE Discharging clinician: Barbara Davila Anticipated date of discharge: 12/22/18 - Patient Status Disposition: Home, Self-Care Condition: Good Functional capacity at discharge: independent ambulation Overall status at discharge: patient is progressing back to baseline - Discharge Instructions Follow Up With: NONE,PCP [Primary Care Provider] - Osmar Salas MD [Partnered Physician] - - Diet and Activity Activity: increase activity as tolerated Hospital Course Reason for admission: active labor Delivery: section Episiotomy: none Laceration: none Other procedures: none complications: none Discharge diagnosis: IUP at term delivered [place] baby: female Hospital course: - Date of procedure: 12/20/18 Preop diagnosis: category 2 FHT tracing Post-op diagnosis: same Procedure: primary low transverse Surgeon: Osmar Salas Quantitated Blood Loss: 500 Was there an dental assistant present: Yes Production Honing Machine Operator: Kiki Freire Sales Intern: Alex Rodas Anesthesia Type: General section complications: none Disposition: L&D Recovery Room Specimens: Placenta - (s) Infant A Infant Delivery Date: 12/20/18 Infant Delivery Time: 12:25 Presentation: vertex Gender: Female Gram Weight: 2.42 kg at 1 minute: 1 at 5 minutes: 6 at 10 minutes: 8 Shoulder Dystocia: not encountered Time Attestation: Total time spent providing and/or coordinating discharge services: - VTE Reasons for not Prescribing Prophylaxis: Treatment not Indicated - Low risk for VTE Documentation of Mechanical Device: Intermittent pneumatic compression device Exam - Constitutional Vitals: Temp Pulse Resp BP Pulse Ox 97.7 F 121 14 138/87 100 12/22/18 04:20 12/22/18 04:20 12/22/18 04:20 12/22/18 04:20 12/22/18 04:20 General appearance IM: A&O X 3 - Respiratory Respiratory exam: Present: CTAB - Cardiovascular Cardiovascular exam IM: Present: RRR - GI/Abdominal GI/Abdominal exam IM: soft Incision: dressed (KADY dry and intact) - Uterine Tone: Firm Uterus Position: 1 Finger Below Umbilicus (exam limited by maternal habitus) - Extremities Exam Extremities exam IM: Present: pedal edema (mild bilaterally) - Neurological Exam Neurological exam: normal gait, oriented X3 - Psychiatric Additional comments: reports good mood, plans to discuss contraception at visit. - Other Additional findings: OARRS reviewed.
[2018-12-23] MEDS: *HR* OxyCODONE/APAP 5/325 TABLET PO PRN ×2 (00:32→08:12)
[2018-12-23] MEDS: Ibuprofen 600 MG TABLET PO PRN (05:39)
[2018-12-23] MEDS: Prenatal Vit/FA 1 EACH TABLET PO SCH (08:11)
--- NOTE | 2018-12-23 08:14 | OB/GYN Progress Note ---
Date of Encounter: 12/23/18 Time of Encounter: 08:11 - Assessment and Plan (1) Status post primary low transverse section Current Visit: Yes Status: Acute Patient meeting all day 3 milestones. She was spoken to be discharged today as her pain is now more in control. Able to ambulate and void. She Jody has prescription sent as well as scheduled appointment in the office. We will talk about contraception at that time. Patient discharged home today in stable condition. (2) Breast feeding status of mother Current Visit: Yes Status: Acute is breast-feeding well latching well mom has no concerns for breast- feeding. No further needs at this time. Subjective - Subjective Principal diagnosis: s/p day3 section Interval history: Patient meeting all day 3 milestones. Patient was planned to be discharged yesterday she however decided to stay 1 more day as she said she was still in a little bit of pain into for comfortable going home. Patient believes this is due to her not taking enough pain medication said yesterday she did take him as prescribed is feeling much better today. She is able to ambulate has been able to eat and drink and is voiding. Patient now feels comfortable being discharged home baby is arty discharge as well. Patient reports: appetite normal, voiding normally, pain well controlled, ambulating normally [place]: doing well Objective - Vital Signs Latest vital signs: Vital Signs Temp Pulse Resp BP Pulse Ox 12/23/18 00:30 98.9 F 102 16 130/94 99 12/22/18 22:00 98.6 F 111 16 126/85 99 12/22/18 20:22 98.2 F 114 16 134/85 98 12/22/18 15:34 97.9 F 118 16 110/75 97 12/22/18 09:50 98.1 F 112 17 128/88 97 Intake and Output 12/22/18 12/23/18 12/23/18 23:59 07:59 15:59 Intake Total 200 / 200 Output Total 500 / 500 200 / 200 Balance -300 / -300 -200 / -200 Intake: Oral 200 / 200 Output: Urine 500 / 500 200 / 200 Other: Weight 153.405 kg Patient Weight 12/23/18 23:59 Weight 153.405 kg - Exam Lungs: bilateral: normal Chest: Normal S1, Normal S2 Extremities: Present: normal Abdomen: Present: normal appearance, soft. Absent: distention, tenderness Incision: Present: normal, dry, intact, dressed Uterus: Present: normal, firm
[2018-12-23 08:16] VITALS: BP 106/80
== END 2018-12-23 11:12 | disposition home or self-care (01) | DRG 540 ==
LOC: 1NENULAB → OBSVTOIN 07:51 → 1NENULAB 11:09 → 1NENUOBS 17:41
PROVIDERS: ADMIT Student in an Organized Health Care Education/Training Program; ATTEND Student in an Organized Health Care Education/Training Program